=== PATIENT | male | born 1985 | race Caucasian/White ===

== ENCOUNTER 2018-09-21 01:28 | Emergency (ER) | payer OTHER ==
[~2018-09-21] VITALS: Ht 180.3 cm; Wt 86.0 kg
[2018-09-21 01:59] LABS: BASO # 0.1 10^3/uL (0.0-0.2); EOS # 0.2 10^3/uL (0.0-0.50); EOS % 3.6 % (0.0-3.0); HEMOGLOBIN 15.3 g/dl (13.5-17.5); LYMPH # 2.3 10^3/uL (1.5-4.5); LYMPH % 36.9 % (24.0-44.0); MEAN CORPUSCULAR HEMOGLOBIN 30.7 pg (27.0-33.0); MEAN CORPUSCULAR HGB CONC 35.6 g/dl (32.0-36.5); MEAN CORPUSCULAR VOLUME 86.2 fl (80.0-96.0); MONO # 0.6 10^3/uL (0.0-0.8); MONO % 9.5 % (0.0-5.0); NEUTROPHILS % 48.7 % (36.0-66.0); PLATELET COUNT, AUTOMATED 221 10^3/uL (150-450); RED BLOOD COUNT 4.99 10^6/uL (4.30-6.10); WHITE BLOOD COUNT 6.1 10^3/uL (4.0-10.0)
[2018-09-21 02:12] LABS: INR 1.02; PROTHROMBIN TIME 13.1 SECONDS (11.8-14.0)
[2018-09-21 03:10] LABS: ALBUMIN 3.6 GM/DL (3.2-5.2); ALT/SGPT 24 U/L (12-78); BILIRUBIN,TOTAL 0.5 MG/DL (0.2-1.0); BLOOD UREA NITROGEN 16 MG/DL (7-18); CALCIUM LEVEL 8.7 MG/DL (8.5-10.1); CARBON DIOXIDE LEVEL 28 MEQ/L (21-32); CHLORIDE LEVEL 107 MEQ/L (98-107); CK-MB VALUE MASS < 1.0 NG/ML (<3.6); CPK CREATINE PHOSPHOKINASE 271 U/L (39-308); CREATININE FOR GFR 1.28 MG/DL (0.70-1.30); GLOMERULAR FILTRATION RATE > 60.0 (>60); GLUCOSE, FASTING 112 MG/DL (70-100); LIPASE 141 U/L (73-393); MB/CK RELATIVE INDEX 0.37 (< OR =4); POTASSIUM SERUM 3.7 MEQ/L (3.5-5.1); SODIUM LEVEL 142 MEQ/L (136-145); TOTAL PROTEIN 6.5 GM/DL (6.4-8.2); TROPONIN I 0.02 NG/ML (< 0.10)
[2018-09-21] MEDS ORDERED: ISOVUE-370 76% 100ML VIAL (Q9967) As Ordered ONE (03:26)
[2018-09-21] MEDS ORDERED: NITROGLYCERIN 0.4 MG SUBL TABLET SL PRN (03:30)
[2018-09-21] MEDS ORDERED: NS 1,000 ML IV ONE (04:00)
--- NOTE | 2018-09-21 04:01 | REPVR ---
EXAM: CT Angiography Chest With Contrast EXAM DATE/TIME: 09/21/2018 3:22 AM CLINICAL HISTORY: 32 years old, male; Pain; Pleuordynia; Additional info: Pleuritic chest pain TECHNIQUE: Imaging protocol: Axial computed tomographic angiography images of the chest with intravenous contrast using CT angiography protocol. Coronal and sagittal reformatted images were created and reviewed. 3D rendering: MIP reconstructed images were created and reviewed. Radiation optimization: All CT scans at this facility use at least one of these dose optimization techniques: automated exposure control; mA and/or kV adjustment per patient size (includes targeted exams where dose is matched to clinical indication); or iterative reconstruction. Contrast material: ISO;Contrast volume: 75 ml;Contrast route: AC; COMPARISON: CR PORTABLE CHEST X-RAY 09/21/2018 1:56 AM FINDINGS: Pulmonary arteries: The main pulmonary artery measures 28 mm. No pulmonary embolism is identified. Aorta: The ascending thoracic aorta measures 31 mm. Lungs: Minimal bilateral lower lobe dependent atelectasis. Pleural space: Trace left pneumothorax which is noted around the heart and is also noted adjacent to the aorta and in the left apex. No pleural effusion. Heart: Unremarkable. No cardiomegaly. No pericardial effusion. Mediastinum: There is slight induration conforming to the anterior mediastinum consistent with residual thymic tissue. Gallbladder and bile ducts: The gallbladder is contracted with no stones. Stomach and bowel: Mild distention of the stomach with food material. Lymph nodes: Unremarkable. No enlarged lymph nodes. Bones/joints: Unremarkable. No acute fracture. Soft tissues: Unremarkable. IMPRESSION: 1. Trace left pneumothorax. 2. There is mild distention of the stomach which in view of a contracted gallbladder likely reflects recent ingestion. 3. No pulmonary embolism is identified. Electronically signed by: David Waters On 09/21/2018 04:00:39 AM
[2018-09-21 08:00] VITALS: BP 106/65
--- NOTE | 2018-09-21 08:16 | ECGEPIP ---
[facility] - ED Test Date: 2018-09-21 Pat Name: WILBERTO MAE Department: Room: - Gender: Male Caretaker: JOSE MANUEL : 1985 Requested By: JOY Galvan Order Number: [id number] Reading MD: Debbie Ramirez Measurements Intervals [place] Rate: 64 P: 40 OH: 132 QRS: 40 QRSD: 92 T: 30 QT: 402 QTc: 416 Interpretive Statements SINUS RHYTHM WITH SINUS ARRHYTHMIA NSTTW abnormalities No prior Electronically Signed on 09-21-2018 8:16:14 EDT by Debbie Ramirez
--- NOTE | 2018-09-21 08:18 | ECGEPIP ---
[facility] - ED Test Date: 2018-09-21 Pat Name: WILBERTO MAE Department: Room: - Gender: Male [employer]: : 1985 Requested By: JOY Galvan Order Number: [id number] Reading MD: Debbie Ramirez Measurements Intervals [place] Rate: 49 P: 59 PA: 137 QRS: 56 QRSD: 91 T: 43 QT: 428 QTc: 387 Interpretive Statements SINUS BRADYCARDIA NSTTW abnormalities DECREASED RATE 09/21/18 Electronically Signed on 09-21-2018 8:17:36 EDT by Debbie Ramirez
[2018-09-21 08:23] LABS: CK-MB VALUE MASS < 1.0 NG/ML (<3.6); CPK CREATINE PHOSPHOKINASE 228 U/L (39-308); MB/CK RELATIVE INDEX 0.44 (< OR =4); TROPONIN I < 0.02 NG/ML (< 0.10)
--- NOTE | 2018-09-21 09:59 | REP ---
REASON: Followup pneumothorax seen on CT earlier today. That CT was reviewed. The prior plain film obtained earlier then the CT was compared to this chest radiograph. The two view examination of the chest consisting of PA and lateral views compared to the portable examination of the chest obtained approximately 6 hours earlier shows a tiny left apical pneumothorax. That pneumothorax cannot be appreciated on the prior plain film, however, review of the CT obtained at 03:29:30 dose, in fact, show a tiny left apical pneumothorax. The lung [place] are otherwise clear. The heart is not enlarged. The pleural angles are sharp. The osseous structures are normal. IMPRESSION: Tiny left apical pneumothorax. Electronically Signed by Freedom Botello DO 09/21/2018 09:09 A
--- NOTE | 2018-09-24 12:03 | REP ---
REASON: Assess for pneumothorax. Chest pain. COMPARISON: None. FINDINGS: The technique utilized in obtaining the radiograph has magnified the cardiac silhouette and accentuated the interstitial markings. The superior mediastinal structures are midline. The cardiac silhouette is unremarkable in size, shape, and position. The diaphragmatic surfaces of the lungs are regular, and the costophrenic angles are clear. The pulmonary [place] are clear. The imaged osseous structures are intact. IMPRESSION: There is no acute cardiopulmonary disease. Electronically Signed by Freedom Botello DO 09/24/2018 05:07 P
== END 2018-09-21 08:52 | disposition home or self-care (01) ==
LOC: M ED 01:28
DX: J93.9 Pneumothorax, unspecified (principal); F33.9 Major depressive disorder, recurrent, unspecified; G47.00 Insomnia, unspecified
CPT/HCPCS: 71045; 71046; 71275; 80053; 82550; 82553; 83690; 84484; 85025; 85610; 93005; 93041; 94760; 96360; 96361; 99285; Q9967

== ENCOUNTER → 2018-10-03 | Outpatient (CLI) | payer OTHER ==
--- NOTE | 2018-10-03 11:12 | REP ---
REASON: Pneumothorax. COMPARISON: 09/21/2018 which showed a tiny apical pneumothorax on the left. FINDINGS: The superior mediastinal structures are midline. The cardiac silhouette is unremarkable in size, shape, and position. The diaphragmatic surfaces of the lungs are regular, and the costophrenic angles are clear. The pulmonary [place] are clear. The imaged osseous structures are intact. IMPRESSION: There is no acute cardiopulmonary disease. The tiny apical pneumothorax seen previously on the left is no longer present. Electronically Signed by Freedom Botello DO 10/03/2018 12:18 P
== END ==
LOC: M SMT 10:38
PROVIDERS: ATTEND Thoracic Surgery (Cardiothoracic Vascular Surgery)
DX: J93.9 Pneumothorax, unspecified (principal)

== ENCOUNTER → 2018-11-07 | Outpatient (CLI) | payer OTHER ==
--- NOTE | 2018-11-07 09:44 | REP ---
Chest x-ray: Two views. History: Pneumothorax . Comparison study: October 03, 2018 . Findings: The lungs are well inflated and free of infiltrate. The pleural angles are sharp. The heart size is normal. Pulmonary vasculature is not increased. No significant bony abnormality is seen. Impression: Negative chest x-ray. No evidence of pneumothorax. Electronically Signed by Tirso Mcnair MD 11/07/2018 09:35 A
== END ==
LOC: M SMT 08:21
PROVIDERS: ATTEND Thoracic Surgery (Cardiothoracic Vascular Surgery)
DX: J93.9 Pneumothorax, unspecified (principal)